=== PATIENT | female | born 1950 | race Caucasian/White ===

== ENCOUNTER → 2016-12-19 | Outpatient (CLI) | payer MEDICARE, OTHER ==
[~2016-12-19] MED LIST: ACYCLOVIR PO; ANTIVERT PO; ASPIRIN PO; ATIVAN PO; CELEBREX PO; EFFEXOR PO; FLEXERIL PO; FLONASE16 GM; LASIX PO; MEDROL DOSEPAK4 MG DOB; MIACALCIN4 ML; MICRO-K PO; MOBIC PO; NEXIUM PO; PHENERGAN PO; PHENERGAN PR; PREMARIN PO; ZETIA PO; ZITHROMAX PO; ZOFRAN ODT4 MG PO; ZYRTEC PO
--- NOTE | ~2016-12-19 | ST ---
Unit #: [id number] #: [id number] Patient: MAU FAIRCHILD [id number] [address] [address] [id number] O MR#: [id number] NAME: MAU FAIRCHILD : 1950 SEX: F STUDY DATE/TIME: 12/25/2016 UNIT: [facility] ROOM: STUDY DESCRIPTION: Attending Physician: Sukhdev Villanueva D.O. Referring Physician: Sukhdev Villanueva D.O. Primary Care Physician: Sukhdev Villanueva D.O. CARDIOLOGY REPORT EXAM Regular treadmill stress test. FINDINGS Resting heart rate is 90. Resting blood pressure is 111/63 mmHg. Baseline EKG shows normal sinus rhythm. No significant ST-T wave changes. PROCEDURE Patient was made to exercise on a standard Isaac protocol. Total exercise time is 6 minutes, completing stage 2 of standard Isaac protocol. Test stopped because target heart rate achieved and shortness of breath. No complaints of chest pain. Maximal heart rate obtained is 143 which is 93% of maximal predicted heart rate. Maximal blood pressure obtained is 146/86 mmHg. Patient had 0.[address]-T wave changes noted in the inferior and the anterolateral leads. No arrhythmias noted. CONCLUSION 1. Poor exercise tolerance. 2. There is no clinical, hemodynamic, or EKG evidence of ischemia at urc-tn-qysmhstk workload (93% of maximal predicted heart rate, 7 METs). 3. Normal heart rate and blood pressure response. 4. Normal regular treadmill stress test with poor baseline exercise tolerance for age. Dictated by... Lala Todd TD: 12/25/2016 16:53 JOB #: [id number] CC: Sukhdev Villanueva D.O. Unit #: [id number] #: [id number] Patient: MAU FAIRCHILD CARDIOLOGY REPORT Page 1 of 1 X Elisa Burns MD <ELECTRONICALLY SIGNED> 01/09/17 1524 CARDIOLOGY REPORT
== END | disposition home or self-care (01) ==
LOC: CEKG 09:34
DX: R06.00 Dyspnea, unspecified (principal)
CPT/HCPCS: 93017; 93306